=== PATIENT | male | born 1955 | race Caucasian/White ===

== ENCOUNTER 2016-11-19 03:55 | Emergency (ER) | payer OTHER ==
[~2016-11-19] VITALS: Ht 165.1 cm; Wt 127.0 kg
[~2016-11-19 03:55] MED LIST: ALBUTEROL0.09 MG/A1 INH; BREO ELLIPTA 11 EACH; FLOMAX(MONOGRA0.4 MG PO; GUAFENESIN400 MG PO; HYDROCHLOROTHIA25 M1 PO; INCRUSE ELLI62.5 MCG; LISINOPRIL10 M1 PO; MEDROL DOSEPAK1 PAC PO; MIRTAZAPINE45 M1 PO; MOXIFLOXACIN H400 M1 PO; PAROXETINE HCL20 M1 PO; PERCOCET 325 MG1 TA2 PO; PREDNISOLO15 MG/5 M4 PO; SIMVASTATIN40 M1 PO; ULORIC40 M1 PO; ULTRAM(MONOGRAP50 MG PO
[2016-11-19 04:10] VITALS: BP 155/87
--- NOTE | 2016-11-19 04:35 | ED UPPER/LOWER EXTREMITY COMPL ---
History of Present Illness General Chief Complaint: Shoulder Injury Stated Complaint: LT SHOULDER PAIN X'S 2 WKS Source: patient, old records Exam Limitations: no limitations Vital Signs & Intake/Output Vital Signs & Intake/Output Vital Signs Date Time Temp Pulse Resp B/P Pulse O2 O2 Flow FiO2 Ox Delivery Rate 11/19 0410 96.8 106 20 155/87 96 Room Air Allergies Coded Allergies: No Known Allergies (06/04/16) Reconcile Medications Albuterol Sulfate (Albuterol Sulfate Hfa) 0.09 MG/Actuation ADRIANNE 2 PUFF INH Q4- 6 PRN PRN SHORTNESS OF BREATH 90 MCG PER PUFF Febuxostat (Uloric) 40 MG TABLET 1 TAB PO DAILY GOUT (Reported) Fluticasone/Vilanterol (Breo Ellipta 100-25 Mcg INH) 1 EACH BLST.W.DEV COPD ( Reported) Guaifenesin (Guafenesin) 400 MG TAB 1 TAB PO Q4-6 PRN COUGH Hydrochlorothiazide 25 MG TABLET 1 TAB PO DAILY HTN (Reported) Lisinopril 10 MG TABLET 1 TAB PO DAILY HTN (Reported) Methylprednisolone. (Medrol) 1 PAC PAC 1 PAC PO AD INFLAMMATION Mirtazapine 45 MG TABLET 1 TAB PO QPM UNKNOWN (Reported) MOXIFLOXACIN HCL (Moxifloxacin HCl) 400 MG TAB 1 TAB PO DAILY PNA OXYCODONE HCL/ACETAMINOPHEN (Percocet 5-325 MG Tablet) 325 MG/5 MG TAB 1-2 TAB PO Q4-6 PRN PRN PAIN Paroxetine HCl 20 MG TABLET 1 TAB PO DAILY DEPRESSION (Reported) Prednisolone 15 MG/5 ML SOLUTION 15 ML PO QDAY pharyngitis Simvastatin (Simvastatin*) 40 MG TABLET 1 TAB PO QPM HIGH CHOLESTEROL ( Reported) Tamsulosin Hydrochloride (Flomax) 0.4 MG CAP 1 TAB PO DAILY URINANRY RETENTION Tramadol HCl (Ultram) 50 MG TAB 1-2 TAB PO Q6 PRN severe pain Umeclidinium [place] (Incruse Ellipta) 62.5 MCG BLST.W.DEV COPD (Reported) Triage Note: PT TO ED C/O LEFT SHOULDER PAIN FOR 2 WEEKS. STATES HE USED HIS [employer] 2 WEEKS AGO AND SHOULDER HAS BEEN GETTING WORSE. SAW PCP (LONG NELSON) AND HAS BEEN TAKING FLEXERIL FOR 2 DAYS WITH NO IMPROVEMENT Triage Nurses Notes Reviewed? yes HPI: Patient presents for evaluation of a left upper back pain that began about 2 weeks ago. Patient first noticed the pain the day after using a snowblower. The pain has gotten worse since its onset. pain is a constant sharp pain that does not change with movement. he tried flexeril and icy hot without relief. pt also c/o of rashes of the trunk over past 2 days. no fever or cold symptoms. Past History Travel History Traveled to [place] past 21 day No Medical History Any Pertinent Medical History? see below for history Neurological: NONE EENT: NONE Cardiovascular: hypertension, hyperlipidemia, AORTIC DISSECTION Respiratory: COPD, CHRONIC BRONCHITIS Gastrointestinal: NONE Hepatic: NONE Renal: NONE Musculoskeletal: NONE Psychiatric: depression Endocrine: NONE Blood Disorders: NONE Cancer(s): NONE RN LABOR DELIVERY/Reproductive: NONE History of MRSA: No History of VRE: No History of CDIFF: No Tetanus Vaccine: 01/29/13 Surgical History Surgical History: hernia repair-umbilical Psychosocial History Who do you live with Significant Other Services at Home None What is your primary language Macedonian Tobacco Use: Quit >30 days ago ETOH Use: occasional use Illicit Drug Use: denies illicit drug use Family History Hx Contributory? No Review of Systems Review of Systems Constitutional: Reports: no symptoms. EENTM: Reports: no symptoms. Respiratory: Reports: no symptoms. Cardiovascular: Reports: no symptoms. Gastrointestinal/Abdominal: Reports: no symptoms. Genitourinary: Reports: no symptoms. Musculoskeletal: Reports: see HPI. Skin: Reports: see HPI. Neurological/Psychological: Reports: no symptoms. Hematologic/Endocrine: Reports: no symptoms. Immunological: Reports: no symptoms. All Other Systems: Reviewed and Negative Physical Exam Physical Exam General Appearance: see below Comments: Gen.: Well-nourished, well-developed, no acute respiratory distress. Head: Normocephalic, atraumatic. Eyes: Normal inspection bilaterally Ears: Normal inspection bilaterally Nose: Normal inspection, nasal cannula in place Throat/mouth : Moist mucosa Neck: Supple, full range of motion, no goiter Heart: Regular rate and rhythm Lungs: Quiet respirations Back: Normal range of motion Extremities: Slightly decreased left hand grasp secondary to pain, the left upper extremity is neurovascularly intact otherwise. Neurologic: Cranial nerves grossly intact, speech is clear Skin: warm and dry, erythematous/vesicular rash of the left upper back and chest. Psychiatric: Calm, cooperative, no apparent delusions or hallucinations Diagram Shoulders Front/Back 1) rash 2) rash 3) rash 4) rash Progress Differential Diagnosis: cellulitis, contusion, dislocation, fracture, sprain, tendon injury, shingles Plan of Care: see d/c instructions Departure Departure Disposition: HOME OR SELF CARE Condition: Stable Clinical Impression Primary Impression: Shingles Qualifiers: Herpes zoster complications: without complications Qualified Code: B02.9 - Zoster without complications Referrals: LONG TIM MD (PCP/Family) Additional Instructions: Famvir as prescribed. Voltaren as needed for pain. Add [place] if necessary for pain. Follow-up with your primary care doctor in 2 weeks if not improved. Return if any concerns or sudden worsening. Thank you for choosing the [facility] Emergency Department for your care. It was a pleasure to serve you today. Phuc Sweeney M.D. [facility] Departure Forms: Customer Survey General Discharge Information Prescriptions: Current Visit Scripts Diclofenac Sodium 1 TAB PO BID PRN PAIN #20 TAB Hydrocodone/Acetaminophen ([place] 5-325 Tablet) 1-2 TAB PO Q6P PRN PAIN #20 TAB Famciclovir 1 TAB PO TID #21 TAB
[2016-11-19] MEDS ORDERED: NORCO 5-325 TA1 EACH PO (04:47)
[2016-11-19] MEDS ORDERED: DICLOFENAC SODI75 M2 PO (04:47)
[2016-11-19] MEDS ORDERED: FAMCICLOVIR500 M1 PO (04:47)
== END 2016-11-19 05:04 ==
LOC: ERH 03:55
DX: B02.9 Zoster without complications (principal)

== ENCOUNTER 2017-12-17 03:55 | Observation (INO) | payer OTHER ==
[~2017-12-17] VITALS: Ht 165.1 cm; Wt 122.5 kg
[~2017-12-17 03:55] MED LIST changes: +ANASTROZOLE1 M1 PO; +CHLORDIAZEPOXID10 M2 PO; +DICLOFENAC SODI75 M2 PO; +DULOXETINE HCL30 MG PO; +FAMCICLOVIR500 M1 PO; +FOLIC ACID1 M1 PO; +HYDROXYZINE HCL50 M1 PO; +MIRTAZAPINE15 M2 PO; +NALTREXONE HCL50 M1 PO; +NORCO 5-325 TA1 EACH PO; +PAXIL20 M1 PO
--- NOTE | 2017-12-17 04:23 | ED GI/GU/ABDOMINAL COMPLAINT ---
History of Present Illness General Chief Complaint: Abdominal Pain/Flank Pain Stated Complaint: "MY STOMACH ACHE, SOMEONE IS KICKING IT" Source: patient Exam Limitations: no limitations Vital Signs & Intake/Output Vital Signs & Intake/Output Vital Signs Date Time Temp Pulse Resp B/P B/P Pulse O2 O2 Flow FiO2 Mean Ox Delivery Rate 12/17 0853 85 20 181/93 97 Room Air 12/17 0601 98 18 193/88 97 Room Air 12/17 0412 98.0 57 20 182/102 96 Room Air Allergies Coded Allergies: No Known Allergies (06/04/16) Reconcile Medications Anastrozole 1 MG TABLET 1 TAB PO DAILY PT UNSURE (Reported) Ezetimibe (Zetia) 10 MG TABLET 1 TAB PO DAILY HIGH CHOLESTROL (Reported) Febuxostat (Uloric) 40 MG TABLET 1 TAB PO DAILY GOUT (Reported) Fluticasone/Vilanterol (Breo Ellipta 100-25 Mcg INH) 1 EACH BLST.W.DEV COPD ( Reported) Folic Acid 1 MG TABLET 1 MG PO DAILY supplement Hydroxyzine HCl (hydrOXYzine HCl) 50 MG TABLET ALLERGIES (Reported) Lisinopril 10 MG TABLET 1 TAB PO DAILY HTN (Reported) Mirtazapine 15 MG TABLET 1 TAB PO QPM SLEEP HELP . Naltrexone HCl 50 MG TABLET 1 TAB PO DAILY alcohol withdrawal . Paroxetine HCl 20 MG TABLET 1 TAB PO DAILY MENTAL HEALTH (Reported) Risperidone (Risperdal) 0.5 MG TABLET 1 TAB PO DAILY MENTAL HEALTH (Reported) Umeclidinium [place] (Incruse Ellipta) 62.5 MCG BLST.W.DEV COPD (Reported) Triage Note: PT HERE FROM HOME WITH C/O ABD PAIN THAT BEGAN LAST NIGHT. PT REPORTS PASSING GAS. PT REPORTS HE HAD A BM YESTERDAY MORNING. PT STATES THE PAIN FEELS LIKE SOMEONE IS KICKING ME. HE ALSO STATES LIKE HE FEELS LIKE HE NEEDS TO GO BM BUT CANT. PT REPORTS TAKING GAS-X AND SOME STOOL SOFTNERS WITHOUT RELIEF. Triage Nurses Notes Reviewed? yes Onset: Abrupt Duration: hour(s):, continues in ED, waxing and waning Location: generalized abdomen Radiation: no radiation HPI: Patient presents for evaluation of abdominal pain. Patient states that he had been passing a lot of flatus during the day but then that stopped and he began having abdominal pain feeling like a bloating sensation and the urge to move his bowels. Patient denies any associated fever or cold symptoms but did have some dry heaving. He denies any diarrhea. He has had an abdominal hernia surgery and also an aortic dissection surgery. (Phuc Sweeney MD) Past History Travel History Traveled to [place] past 21 day No Medical History Any Pertinent Medical History? see below for history Neurological: NONE EENT: NONE Cardiovascular: hypertension, hyperlipidemia, AORTIC DISSECTION Respiratory: COPD, CHRONIC BRONCHITIS Gastrointestinal: NONE Hepatic: NONE Renal: NONE Musculoskeletal: NONE Psychiatric: anxiety, depression, ETOH Endocrine: NONE Blood Disorders: NONE Cancer(s): NONE JAIL GUARD/Reproductive: NONE History of MRSA: No History of VRE: No History of CDIFF: No Tetanus Vaccine: 01/29/13 Surgical History Surgical History: hernia repair-umbilical, AORTIC DISSECTION Psychosocial History Who do you live with Significant Other Services at Home None What is your primary language Tuvaluan Tobacco Use: Quit <30 days ago ETOH Use: occasional use Illicit Drug Use: denies illicit drug use Family History Family History, If Any: No Known Family History. Hx Contributory? No (Zahra BEEBE,Phuc Curiel) Review of Systems Review of Systems Constitutional: Reports: no symptoms. EENTM: Reports: no symptoms. Respiratory: Reports: no symptoms. Cardiovascular: Reports: no symptoms. GI: Reports: see HPI. Genitourinary: Reports: no symptoms. Musculoskeletal: Reports: no symptoms. Skin: Reports: no symptoms. Neurological/Psychological: Reports: no symptoms. Hematologic/Endocrine: Reports: no symptoms. Immunologic/Allergic: Reports: no symptoms. All Other Systems: Reviewed and Negative (Phuc Sweeney MD) Physical Exam Physical Exam Gastrointestinal: SEE BELOW Comments: Gen.: Well-nourished, well-developed, no acute respiratory distress. Moderately uncomfortable secondary to abdominal pain. Head: Normocephalic, atraumatic. Eyes: Normal inspection bilaterally Ears: Normal inspection bilaterally Nose: Normal inspection Throat/mouth : Moist mucosa Neck: Supple, full range of motion, no goiter Heart: Regular rate and rhythm, no murmurs rubs or gallops Lungs: Clear to auscultation bilaterally with normal air entry Chest: Nontender Back: Normal range of motion Abdomen: Soft, diffuse tenderness with voluntary guarding but no rebound, nondistended, decreased bowel sounds Extremities: Normal range of motion grossly, equal radial pulses, no cyanosis clubbing or edema Neurologic: Cranial nerves grossly intact, speech is clear Skin: warm and dry Psychiatric: Calm, cooperative, no apparent delusions or hallucinations (Zahra BEEBE,Phuc Curiel) Core Measures ACS in differential dx? No Sepsis Present: No Sepsis Focused Exam Completed? No (Claudia BEEBE,Ana Crowder) Progress Differential Diagnosis: sbo, AORTIC DISSECTION/ANEURYSM, DIVERTICULITIS, APPENDICITIS, PANCREATITIS, BILIARY COLIC Plan of Care: Orders Procedure Date/time Status Nothing by Mouth 12/17 B Active TROPONIN LEVEL 12/17 0843 Active Add-on Test (ER Only) 12/17 0842 Active EKG 12/17 0842 Active Add-on Test (ER Only) 12/17 0628 Active TROPONIN LEVEL 12/17 0438 Complete LACTIC ACID 12/17 043 Complete URINALYSIS 12/17 043 Complete LIPASE 12/17 043 Complete COMPREHENSIVE METABOLIC PANEL 12/17 430 Complete CBC WITHOUT DIFFERENTIAL 12/17 430 Complete Current Medications Sig/Rei Start time Last Medication Dose Stop Time Status Admin Sodium Chloride 1,000 ML ONCE ONE 12/17 0445 AC 12/17 (Normal Saline 0.9%) 12/17 1124 0440 Laboratory Tests 12/17/17 0845: Troponin I Pending 12/17/17 0504: Urinalysis LIGHT H, Urine Color YEL, Urine Clarity HAZY H, Urine pH 5.5, Ur Specific Sanders >= 1.030, Urine Protein 100 H, Urine Ketones NEG, Urine Nitrite NEG, Urine Bilirubin NEG, Urine Urobilinogen 0.2, Ur Leukocyte Esterase NEG, Ur Microscopic SEDIMENT EXAMINED, Urine RBC 5-10 H, Urine WBC 3-5 H, Ur Epithelial Cells RARE, Urine Bacteria RARE H, Urine Mucus FEW, Urine Hemoglobin TRACE-INTACT H, Urine Glucose NEG 12/17/17 0438: Anion Gap 16, Estimated GFR 47 L, BUN/Creatinine Ratio 12.0, Glucose 177 H, Lactic Acid 2.4 H, Calcium 9.8, Total Bilirubin 0.5, AST 19, ALT 35, Alkaline Phosphatase 62, Troponin I < 0.01, Total Protein 7.1, Albumin 4.5, Globulin 2.6, Albumin/Globulin Ratio 1.7, Lipase 99, CBC w Diff MAN DIFF ORDERED, RBC 5.37, MCV 88.9, MCH 29.2, MCHC 32.9 L, RDW 13.9, MPV 8.3, Gran % 89.9 H, Lymphocytes % 6.6 L, Monocytes % 3.2, Eosinophils % 0.1, Basophils % 0.2, Absolute Granulocytes 14.4 H, Segmented Neutrophils 79 H, Band Neutrophils 9 H, Absolute Lymphocytes 1.1 L, Lymphocytes 5 L, Monocytes 5, Absolute Monocytes 0.5, Eosinophils 1, Absolute Eosinophils 0, Basophils 1, Absolute Basophils 0, Platelet Estimate ADEQUATE, Normocytic RBCs VERIFIED, Normochromic RBCs VERIFIED Diagnostic Imaging: Viewed by Me: CT Scan. Discussed w/RAD: CT Scan. Radiology Impression: PATIENT: NOHEMI JOLLY PRESENT AGE: 62 PATIENT ACCOUNT NO: [id number] : 53 LOCATION: [facility] ORDERING PHYSICIAN: Phuc Sweeney MD SERVICE DATE: 12/17/17 EXAM TYPE : CAT - CT ABD & PELVIS W/O IV CONTRAS EXAMINATION: CT ABDOMEN AND PELVIS WITHOUT CONTRAST CLINICAL INFORMATION: No flatus. Concern for small bowel obstruction. History of aortic dissection. COMPARISON: CT scan abdomen pelvis January 17, 2011 TECHNIQUE: Multidetector volumetric imaging was performed from the superior aspect of the liver through the pubic symphysis. Sagittal and coronal reformatted images were obtained on the technologist's workstation. DLP: 1302.27 mGy-cm FINDINGS: LUNG BASES: The visualized lung bases are unremarkable. There is coronary artery calcifications. LIVER, GALLBLADDER, AND BILIARY TREE: There is diffuse low attenuation of liver parenchyma due to fatty change. There is no focal liver lesion or intrahepatic bile duct dilatation. There is a 8 mm calcified gallstone at the neck of the gallbladder. There is no edema around the gallbladder. There is no bile duct dilatation. PANCREAS: Unremarkable. SPLEEN: Unremarkable. ADRENAL GLANDS: Unremarkable. KIDNEYS AND URETERS: There are bilateral renal cysts. There are 2 pedunculated cyst of the left kidney in the mid and lower pole measuring 2.8 cm each. There are several pedunculated cysts of the right kidney the largest measuring about 1.3 cm. There are linear vascular calcifications of the gustavo of both kidneys. No renal or ureteral calculus. BLADDER: Unremarkable. GASTROINTESTINAL TRACT: There are numerous diverticulosis of the left colon sigmoid with scattered diverticula right colon. No bowel wall thickening or edema. No bowel obstruction. Scattered stool in the colon. The appendix is normal. The small bowel loops are unremarkable. ABDOMINAL WALL: Small bilateral fat-containing inguinal hernia. Small fat-containing umbilical hernia. LYMPH NODES: Normal. VASCULAR: Scattered vascular calcifications of the wall of aorta and iliac arteries without aneurysm. PELVIC VISCERA: Unremarkable. OSSEOUS STRUCTURES: Unremarkable. IMPRESSION: 1. No acute abnormality CT scan abdomen pelvis. 2. Diffuse fatty change of liver. 3. Cholelithiasis without acute abnormality of the gallbladder. No bile duct dilatation. 4. Diverticulosis of the colon. No acute change of the bowel. 5. Multiple bilateral renal cysts. DICTATED BY: Bassam Uribe MD DATE/TIME DICTATED: 12/17/17603 SAMPLE CLERK:JESUS DATE/TIME TRANSCRIBED:12/17/17603 CONFIDENTIAL, DO NOT COPY WITHOUT APPROPRIATE AUTHORIZATION. <Electronically signed in Other Vendor System> SIGNED BY: Bassam Uribe MD 12/17/17 0614 Initial ED EKG: none Comments: 12/17/2017 6:44:47 AM I have updated Nohemi on his test results. He states that he tried to go to the bathroom here in the emergency department but just passed gas. He states he has a bowel movement every day but he did not have one this morning and is concerned about constipation. Rectal examination reveals no stool in the rectal vault and the residue is heme negative. 12/17/2017 7:37:24 AM patient signed out to Dr. 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 (Zahra BEEBE,Phuc Curiel) Initial ED EKG: NSR, nonspecific ST T wave chg Prior EKG: unchanged (Ana Taylor MD) Departure Departure Condition: Stable Referrals: Karthikeyan Evangelista MD (PCP/Family) Departure Forms: Customer Survey General Discharge Information (Phuc Sweeney MD) Departure Disposition: STILL A PATIENT Clinical Impression Primary Impression: Upper abdominal pain, unspecified Observation Note Spoke With: Marlen BEEBE,Logan N. Physician Advisor Notified: ANA TAYLOR MD Place Patient In: Non-ED OBS Care Area Rationale for Observation: My rational for observation is as follows [patient to be placed in general surgical problems for abdominal pain. He will need serial exams, IV fluids, IV pain control, nothing by mouth]. (Taylor MD,Costa.) pain control, nothing by mouth]. (Claudia BEEBE,Ana Crowder)
[2017-12-17] MEDS ORDERED: HYDROXYZINE HCL50 M2 (04:42)
[2017-12-17] MEDS ORDERED: RISPERDAL0.5 M1 PO (04:43)
[2017-12-17] MEDS ORDERED: ZETIA10 M1 PO (04:43)
[2017-12-17] MEDS ORDERED: PAROXETINE HCL20 M1 PO (04:43)
[2017-12-17 05:20] LABS: ABSOLUTE BASOPHIL COUNT 0 /CUMM (0.0-0.2); ABSOLUTE EOSINOPHIL COUNT 0 /CUMM (0.0-0.7); ABSOLUTE GRANULOCYTE CT 14.4 /CUMM (1.4-6.5); ABSOLUTE LYMPH COUNT 1.1 /CUMM (1.2-3.4); ABSOLUTE MONOCYTE COUNT 0.5 /CUMM (0.10-0.60); BASOPHIL % 0.2 % (0.0-2.0); EOSINOPHIL % 0.1 % (0-5); GRANULOCYTE % 89.9 % (42.2-75.2); HEMATOCRIT 47.7 % (42-52); MEAN CORPUSCULAR HGB 29.2 PG (27.0-31.0); MEAN CORPUSCULAR HGB CONC 32.9 G/DL (33.0-37.0); MEAN CORPUSCULAR VOLUME 88.9 FL (80.0-94.0); MEAN PLATELET VOLUME 8.3 FL (7.4-10.4); PLATELET COUNT 285 /CUMM (130-400); RBC DISTRIBUTION WIDTH 13.9 % (11.5-14.5); RED BLOOD CELL CT 5.37 /CUMM (4.70-6.10)
--- NOTE | 2017-12-17 06:14 | CT SCAN REPORT ---
EXAMINATION: CT ABDOMEN AND PELVIS WITHOUT CONTRAST CLINICAL INFORMATION: No flatus. Concern for small bowel obstruction. History of aortic dissection. COMPARISON: CT scan abdomen pelvis January 17, 2011 TECHNIQUE: Multidetector volumetric imaging was performed from the superior aspect of the liver through the pubic symphysis. Sagittal and coronal reformatted images were obtained on the technologist's workstation. DLP: 1302.27 mGy-cm FINDINGS: LUNG BASES: The visualized lung bases are unremarkable. There is coronary artery calcifications. LIVER, GALLBLADDER, AND BILIARY TREE: There is diffuse low attenuation of liver parenchyma due to fatty change. There is no focal liver lesion or intrahepatic bile duct dilatation. There is a 8 mm calcified gallstone at the neck of the gallbladder. There is no edema around the gallbladder. There is no bile duct dilatation. PANCREAS: Unremarkable. SPLEEN: Unremarkable. ADRENAL GLANDS: Unremarkable. KIDNEYS AND URETERS: There are bilateral renal cysts. There are 2 pedunculated cyst of the left kidney in the mid and lower pole measuring 2.8 cm each. There are several pedunculated cysts of the right kidney the largest measuring about 1.3 cm. There are linear vascular calcifications of the gustavo of both kidneys. No renal or ureteral calculus. BLADDER: Unremarkable. GASTROINTESTINAL TRACT: There are numerous diverticulosis of the left colon sigmoid with scattered diverticula right colon. No bowel wall thickening or edema. No bowel obstruction. Scattered stool in the colon. The appendix is normal. The small bowel loops are unremarkable. ABDOMINAL WALL: Small bilateral fat-containing inguinal hernia. Small fat-containing umbilical hernia. LYMPH NODES: Normal. VASCULAR: Scattered vascular calcifications of the wall of aorta and iliac arteries without aneurysm. PELVIC VISCERA: Unremarkable. OSSEOUS STRUCTURES: Unremarkable. IMPRESSION: 1. No acute abnormality CT scan abdomen pelvis. 2. Diffuse fatty change of liver. 3. Cholelithiasis without acute abnormality of the gallbladder. No bile duct dilatation. 4. Diverticulosis of the colon. No acute change of the bowel. 5. Multiple bilateral renal cysts.
--- NOTE | 2017-12-17 11:52 | ULTRASOUND REPORT ---
EXAMINATION: US ABDOMEN LIMITED CLINICAL INFORMATION: Right upper quadrant pain. Evaluation for cholecystitis requested.. COMPARISON: Same day CT abdomen pelvis TECHNIQUE: Real-time imaging of the right upper quadrant abdominal viscera. Examination limited secondary to patient body habitus and overlying bowel gas. FINDINGS: PANCREAS: Visualized portions of pancreas are grossly unremarkable. LIVER: The liver is normal in size but demonstrates diffusely decreased attenuation. Regions of decreased attenuation around the gallbladder. No intrahepatic biliary ductal dilatation. GALLBLADDER: Normal. The gallbladder is physiologically distended without evidence of stones, sludge, polyps, wall thickening or pericholecystic fluid. COMMON BILE DUCT: Not clearly visualized. RIGHT KIDNEY: No renal calculi or hydronephrosis. The kidney measures 10.9 cm in maximum dimension. FREE FLUID: None. IMPRESSION: 1. Unremarkable sonographic imaging of the gallbladder although evaluation is somewhat limited secondary to patient body habitus. Definitive gallstones are not visualized. No gallbladder wall thickening or pericholecystic fluid. 2. Diffusely increased liver echogenicity most suggestive of hepatic steatosis with regions of focal fatty sparing.
[2017-12-17 13:20] VITALS: BP 178/98
[2017-12-17 14:43] VITALS: BP 140/90
--- NOTE | 2017-12-17 17:28 | History & Physical Pre-Op ---
General Information and HPI History of Present Illness: CC: abdominal pain HPI: 62-year-old yo non-diabetic smoker with a history of abdominal aortic surgery (from trauma), alcoholism, he was admitted here last June for hyponatremia related in part to alcohol intake. He comes to the ER with abdominal pain which started yesterday after he had passed a lot of flatus over the course of several hours. He had a roast B sandwich for lunch but just fruit and salad for dinner he denies any significant vomiting he indicates that his discomfort is mostly in the middle perhaps slightly more in the upper half, does not radiate, now feels a little better, is not hungry, pain is not worse on movement, hasn't moved his bowels today but he moves them regularly no bleeding per rectum no unusual straining or lifting recent flulike symptoms or fevers, he 's had similar pains before but not this severe and he can't recall any relation to food . When The Pain Started He Did Take A Few Laxatives Including Pepto- Bismol Otherwise no changes bowel habits, weight or appetite. I've reviewed the [facility]. No history of GERD, PUD, bleeding problems, heart disease or issues with anesthesia. Family history positive for depression, mother Allergies/Medications Allergies: Coded Allergies: No Known Allergies (06/04/16) Home Med list Anastrozole 1 MG TABLET 1 TAB PO DAILY PT UNSURE (Reported) Ezetimibe (Zetia) 10 MG TABLET 1 TAB PO DAILY HIGH CHOLESTROL (Reported) Febuxostat (Uloric) 40 MG TABLET 1 TAB PO DAILY GOUT (Reported) Fluticasone/Vilanterol (Breo Ellipta 100-25 Mcg INH) 1 EACH BLST.W.DEV COPD ( Reported) Folic Acid 1 MG TABLET 1 MG PO DAILY supplement Hydroxyzine HCl (hydrOXYzine HCl) 50 MG TABLET ALLERGIES (Reported) Lisinopril 10 MG TABLET 1 TAB PO DAILY HTN (Reported) Mirtazapine 15 MG TABLET 1 TAB PO QPM SLEEP HELP . Naltrexone HCl 50 MG TABLET 1 TAB PO DAILY alcohol withdrawal . Paroxetine HCl 20 MG TABLET 1 TAB PO DAILY MENTAL HEALTH (Reported) Risperidone (Risperdal) 0.5 MG TABLET 1 TAB PO DAILY MENTAL HEALTH (Reported) Umeclidinium [place] (Incruse Ellipta) 62.5 MCG BLST.W.DEV COPD (Reported) Past History Medical History Neurological: NONE EENT: NONE Cardiovascular: hypertension, hyperlipidemia, AORTIC DISSECTION Respiratory: COPD, CHRONIC BRONCHITIS Gastrointestinal: NONE Hepatic: NONE Renal: NONE Musculoskeletal: NONE Psychiatric: anxiety, depression, ETOH Endocrine: NONE Blood Disorders: NONE Cancer(s): NONE [employer]/Reproductive: NONE History of MRSA: No History of VRE: No History of CDIFF: No Tetanus Vaccine: 01/29/13 Surgical History Pertinent Surgical History: hernia repair-umbilical, AORTIC DISSECTION Past Family/Social History Family History Relations & Conditions if any No Known Family History. Psychosocial History Services at Home None ETOH Use: occasional use Illicit Drug Use: denies illicit drug use Review of Systems Review of Systems: Constitutional: No fever, sweats or weight loss ENMT: No sore throat Cardiovascular: No chest pain, palpitations or leg swelling Respiratory: No shortness of breath, cough, or sputum or dyspnea on exertion GI: No GERD or bleeding per rectum : No dysuria or hematuria Musculoskeletal: No new muscle weakness, bone or joint pain Skin / Breast: No jaundice, rashes or itching Psychiatric: No history of drug or alcohol abuse no depression or anxiety Hematologic / lymphatic system: No problems with excessive bleeding, bruising, or blood clots Exam & Diagnostic Data Last 24 Hrs of Vital Signs/I&O I reviewed Vital Signs Date Time Temp Pulse Resp B/P B/P Pulse O2 O2 Flow FiO2 Mean Ox Delivery Rate 12/17 1443 97.6 77 20 140/90 95 12/17 1425 80 178/98 12/17 1320 98.6 80 20 178/98 97 Room Air 12/17 1257 97.8 76 20 180/77 97 Room Air 12/17 0853 85 20 181/93 97 Room Air 12/17 0601 98 18 193/88 97 Room Air 12/17 0412 98.0 57 20 182/102 96 Room Air I reviewed Intake & Output 12/17 1600 12/17 0800 12/17 0000 Intake Total 1000 1000 Output Total 400 Balance 600 1000 Intake, IV 1000 1000 Output, Urine 400 Patient 270 lb 270 lb Weight Weight Reported by Patient Measurement Method Physical Exam: Constitutional: pleasant, no acute distress, conversant Eyes: sclera anicteric ENMT: ears and nose atraumatic, moist mucous membranes, good dentition, no lip lesions Neck: Supple, trachea is midline, no cervical or supraclavicular adenopathy and no palpable thyromegaly Cardiovascular: S1, S2, no murmurs, no peripheral edema Respiratory: clear to auscultation with normal respiratory effort and no intercostal retractions GI: abdomen soft, no consistent focal tenderness, but general discomfort upper greater than lower, nondistended, no palpable hepatosplenomegaly Extremities / lymphatics: symmetrically warm, free range of motion no peripheral edema, no cervical, supraclavicular, axillary, or inguinal adenopathy Musculoskeletal: Did not evaluate gait and station, no digital cyanosis, good muscle strength and tone no atrophy, motor grossly 5 out of 5 throughout Skin: no jaundice, no rashes warm, nondiaphoretic, no areas of erythema or induration Psychiatric: mood and affect are appropriate and alert and oriented to person place and time Last 24 Hrs of Labs/[place]: I reviewed Laboratory Tests 12/17/17 1233: Lactic Acid Cancelled 12/17/17 1105: Lactic Acid 1.4 12/17/17 0845: Troponin I < 0.01 12/17/17 0504: Urinalysis LIGHT H, Urine Color YEL, Urine Clarity HAZY H, Urine pH 5.5, Ur Specific [place] >= 1.030, Urine Protein 100 H, Urine Ketones NEG, Urine Nitrite NEG, Urine Bilirubin NEG, Urine Urobilinogen 0.2, Ur Leukocyte Esterase NEG, Ur Microscopic SEDIMENT EXAMINED, Urine RBC 5-10 H, Urine WBC 3-5 H, Ur Epithelial Cells RARE, Urine Bacteria RARE H, Urine Mucus FEW, Urine Hemoglobin TRACE-INTACT H, Urine Glucose NEG 12/17/17 0438: Anion Gap 16, Estimated GFR 47 L, BUN/Creatinine Ratio 12.0, Glucose 177 H, Lactic Acid 2.4 H, Calcium 9.8, Total Bilirubin 0.5, AST 19, ALT 35, Alkaline Phosphatase 62, Troponin I < 0.01, Total Protein 7.1, Albumin 4.5, Globulin 2.6, Albumin/Globulin Ratio 1.7, Lipase 99, CBC w Diff MAN DIFF ORDERED, RBC 5.37, MCV 88.9, MCH 29.2, MCHC 32.9 L, RDW 13.9, MPV 8.3, Gran % 89.9 H, Lymphocytes % 6.6 L, Monocytes % 3.2, Eosinophils % 0.1, Basophils % 0.2, Absolute Granulocytes 14.4 H, Segmented Neutrophils 79 H, Band Neutrophils 9 H, Absolute Lymphocytes 1.1 L, Lymphocytes 5 L, Monocytes 5, Absolute Monocytes 0.5, Eosinophils 1, Absolute Eosinophils 0, Basophils 1, Absolute Basophils 0, Platelet Estimate ADEQUATE, Normocytic RBCs VERIFIED, Normochromic RBCs VERIFIED Assessment/Plan Assessment/Plan: Studies I reviewed the CT scan on PACS myself from today compared to the one from 2011, except for the oral contrast and a slightly more fluid-filled gallbladder, they're virtually identical. There is no bowel obstruction obvious , you can see probably the Pepto-Bismol in the ascending colon, no bowel wall thickening, there is a lot of visceral fat, there is a calcification near the infundibulum that wasn't seen earlier. Impression is patient with a history of alcohol abuse who presents dehydrated with abdominal pain, he is not very forthcoming with the alcohol apparently he had decreased significantly since the previous, but overall appears rather comfortable no obvious peritoneal signs of the exam may be limited somewhat by analgesics, but the differential includes mesenteric ischemia and biliary colic, both of these even so seem very unlikely given the history and the exam thus far. I recommend IV hydration observation and repeating the labs proximal Lasix hours from the initial ones also getting a dedicated ultrasound of the gallbladder. No acute surgery is indicated. As Ranked By This Provider Problem List: 1. Upper abdominal pain, unspecified 2. Dehydration 3. History of alcohol use
[2017-12-17 19:40] LABS: ABSOLUTE BASOPHIL COUNT 0.1 /CUMM (0.0-0.2); ABSOLUTE EOSINOPHIL COUNT 0.1 /CUMM (0.0-0.7); ABSOLUTE GRANULOCYTE CT 8.2 /CUMM (1.4-6.5); ABSOLUTE LYMPH COUNT 2.7 /CUMM (1.2-3.4); ABSOLUTE MONOCYTE COUNT 0.9 /CUMM (0.10-0.60); BASOPHIL % 0.5 % (0.0-2.0); EOSINOPHIL % 1.2 % (0-5); GRANULOCYTE % 68.2 % (42.2-75.2); HEMATOCRIT 46.9 % (42-52); MEAN CORPUSCULAR HGB 29.4 PG (27.0-31.0); MEAN CORPUSCULAR HGB CONC 33.1 G/DL (33.0-37.0); MEAN CORPUSCULAR VOLUME 88.7 FL (80.0-94.0); MEAN PLATELET VOLUME 7.5 FL (7.4-10.4); PLATELET COUNT 264 /CUMM (130-400); RBC DISTRIBUTION WIDTH 13.9 % (11.5-14.5); RED BLOOD CELL CT 5.29 /CUMM (4.70-6.10)
[2017-12-17 22:11] VITALS: BP 142/100
[2017-12-18 06:50] VITALS: BP 150/98
--- NOTE | 2017-12-18 07:52 | PN- General Surgery ---
Subjective Subjective: Reports pain free since last night. Tolerated dinner and breakfast this morning. No nausea or vomiting. Passing gas. Voiding spontanously. Last BM 2 days ago. Scoring 0 on ciwa. Objective Vital Signs and I&Os Vital Signs Date Time Temp Pulse Resp B/P B/P Pulse O2 O2 Flow FiO2 Mean Ox Delivery Rate 12/18 0650 98.2 61 24 150/98 95 Room Air 12/17 221 98.0 87 19 142/100 96 Room Air 12/17 1443 97.6 77 20 140/90 95 12/17 1425 80 178/98 12/17 1320 98.6 80 20 178/98 97 Room Air 12/17 1257 97.8 76 20 180/77 97 Room Air Intake & Output 12/18 1600 12/18 0800 12/18 0000 12/17 1600 12/17 0800 12/17 0000 Intake Total 615 1575 1000 1000 Output Total 900 400 Balance 615 163 675 2318 Intake, IV 632 547 0854 1000 Intake, Oral 240 700 Number 0 Bowel Movements Output, Urine 900 400 Patient 270 lb 270 lb Weight Weight Reported by Patient Measurement Method Physical Exam: Gen - resting comfortably in NAD Cardiac - S1S2 noted, RRR Lungs - CTAB Abd - soft, obese, protubrant, normoactive bs, dull to percussion, nontender thoughout, no rebound or guarding Current Medications: Current Medications Sig/Rei Start time Last Medication Dose Route Stop Time Status Admin Acetaminophen 1,000 MG Q6H 12/17 09 DC 12/18 N/A 1 UNIT IV 12/18 0344 0313 Albuterol Sulfate 2 PUF Q4P PRN 12/17 1330 AC INH Bisacodyl 10 MG ONCE ONE 12/18 0800 DC ND 12/18 0801 Budesonide/ 2 PUF BID 12/17 2200 AC 12/17 Formoterol Fumarate INH 2210 Dextrose/Sodium 1,000 ML .Q8H 12/17 0930 DC 12/18 Chloride IV 0656 Heparin Sodium 5,000 UNIT Q8 12/17 1400 AC 12/18 (Porcine) SC 0529 Ketorolac 30 MG Q6P PRN 12/17 0930 DC 12/17 Tromethamine IV 2205 Lisinopril 10 MG DAILY 12/17 1322 AC 12/17 PO 1425 Mirtazapine 15 MG QPM 12/18 2200 AC PO Mirtazapine 15 MG ONCE ONE 12/17 2345 DC PO 12/17 2346 Morphine Sulfate 0 .STK-MED ONE 12/17 1017 DC .ROUTE Morphine Sulfate 2 MG Q2P PRN 12/17 0930 DC 12/17 IV 1021 Ondansetron HCl 4 MG Q8P PRN 12/17 0930 AC IV Pantoprazole Sodium 0 .STK-MED ONE 12/17 1017 DC IV Pantoprazole Sodium 40 MG DAILY 12/17 1000 AC 12/17 IV 1019 Paroxetine HCl 20 MG DAILY 12/17 1322 AC 12/17 PO 1425 Polyethylene Glycol 17 GM ONCE ONE 12/18 0800 DC PO 12/18 0801 Risperidone 0.5 MG DAILY 12/17 1324 AC 12/17 PO 1425 Sodium Chloride 1,000 ML ONCE ONE 12/17 0445 DC 12/17 IV 12/17 1124 0440 Results Last 48 Hours of Labs: Laboratory Tests 12/17 12/17 12/17 1908 1233 1105 Chemistry Sodium (137 - 145 mmol/L) 139 Potassium (3.5 - 5.1 mmol/L) 4.0 Chloride (98 - 107 mmol/L) 103 Carbon Dioxide (22 - 30 mmol/L) 25 Anion Gap (5 - 16) 11 BUN (9 - 20 mg/dL) 15 Creatinine (0.7 - 1.2 mg/dL) 1.6 H Estimated GFR (>60 ml/min) 44 L BUN/Creatinine Ratio (7 - 25 %) 9.4 Lactic Acid (0.7 - 2.1 mmol/L) 1.6 Cancelled 1.4 Total Bilirubin (0.2 - 1.3 mg/dL) 0.8 Direct Bilirubin (< 0.4 mg/dL) 0.4 AST (17 - 59 U/L) 16 L ALT (21 - 72 U/L) 24 Alkaline Phosphatase (< 127 U/L) 47 Total Protein (6.3 - 8.2 g/dL) 6.4 Albumin (3.5 - 5.0 g/dL) 3.9 Amylase (30 - 110 U/L) 85 Lipase (23 - 300 U/L) 137 Hematology CBC w Diff NO MAN DIFF REQ WBC (4.8 - 10.8 /CUMM) 12.0 H RBC (4.70 - 6.10 /CUMM) 5.29 Hgb (14.0 - 18.0 G/DL) 15.5 Hct (42 - 52 %) 46.9 MCV (80.0 - 94.0 FL) 88.7 MCH (27.0 - 31.0 PG) 29.4 MCHC (33.0 - 37.0 G/DL) 33.1 RDW (11.5 - 14.5 %) 13.9 Plt Count (130 - 400 /CUMM) 264 MPV (7.4 - 10.4 FL) 7.5 Gran % (42.2 - 75.2 %) 68.2 Lymphocytes % (20.5 - 51.1 %) 22.5 Monocytes % (1.7 - 9.3 %) 7.6 Eosinophils % (0 - 5 %) 1.2 Basophils % (0.0 - 2.0 %) 0.5 Absolute Granulocytes (1.4 - 6.5 /CUMM) 8.2 H Absolute Lymphocytes (1.2 - 3.4 /CUMM) 2.7 Absolute Monocytes (0.10 - 0.60 /CUMM) 0.9 H Absolute Eosinophils (0.0 - 0.7 /CUMM) 0.1 Absolute Basophils (0.0 - 0.2 /CUMM) 0.1 12/17 12/17 0818 0504 Chemistry Troponin I (<0.11 ng/ml) < 0.01 Urines Urinalysis LIGHT H Urine Color (YEL,AMB,STR) YEL Urine Clarity (CLEAR) HAZY H Urine pH (5.0 - 8.0) 5.5 Ur Specific [place] (1.001 - 1.035) >= 1.030 Urine Protein (NEG,<30 MG/DL) 100 H Urine Ketones (NEG) NEG Urine Nitrite (NEG) NEG Urine Bilirubin (NEG) NEG Urine Urobilinogen (0.1 - 1.0 EU/dl) 0.2 Ur Leukocyte Esterase (NEG) NEG Ur Microscopic SEDIMENT EXAMINED Urine RBC (0 - 5 /HPF) 5-10 H Urine WBC (0 - 2 /HPF) 3-5 H Ur Epithelial Cells (NONE,FEW) RARE Urine Bacteria (NEG/NONE) RARE H Urine Mucus (FEW,NONE) FEW Urine Hemoglobin (NEG) TRACE-INTACT H Urine Glucose (N MG/DL) NEG 12/17 0438 Chemistry Sodium (137 - 145 mmol/L) 139 Potassium (3.5 - 5.1 mmol/L) 4.6 Chloride (98 - 107 mmol/L) 102 Carbon Dioxide (22 - 30 mmol/L) 21 L Anion Gap (5 - 16) 16 BUN (9 - 20 mg/dL) 18 Creatinine (0.7 - 1.2 mg/dL) 1.5 H Estimated GFR (>60 ml/min) 47 L BUN/Creatinine Ratio (7 - 25 %) 12.0 Glucose (65 - 99 mg/dL) 177 H Lactic Acid (0.7 - 2.1 mmol/L) 2.4 H Calcium (8.4 - 10.2 mg/dL) 9.8 Total Bilirubin (0.2 - 1.3 mg/dL) 0.5 AST (17 - 59 U/L) 19 ALT (21 - 72 U/L) 35 Alkaline Phosphatase (< 127 U/L) 62 Troponin I (<0.11 ng/ml) < 0.01 Total Protein (6.3 - 8.2 g/dL) 7.1 Albumin (3.5 - 5.0 g/dL) 4.5 Globulin (1.9 - 4.2 gm/dL) 2.6 Albumin/Globulin Ratio (1.1 - 2.2 %) 1.7 Lipase (23 - 300 U/L) 99 Hematology CBC w Diff MAN DIFF ORDERED WBC (4.8 - 10.8 /CUMM) 16.0 H RBC (4.70 - 6.10 /CUMM) 5.37 Hgb (14.0 - 18.0 G/DL) 15.7 Hct (42 - 52 %) 47.7 MCV (80.0 - 94.0 FL) 88.9 MCH (27.0 - 31.0 PG) 29.2 MCHC (33.0 - 37.0 G/DL) 32.9 L RDW (11.5 - 14.5 %) 13.9 Plt Count (130 - 400 /CUMM) 285 MPV (7.4 - 10.4 FL) 8.3 Gran % (42.2 - 75.2 %) 89.9 H Lymphocytes % (20.5 - 51.1 %) 6.6 L Monocytes % (1.7 - 9.3 %) 3.2 Eosinophils % (0 - 5 %) 0.1 Basophils % (0.0 - 2.0 %) 0.2 Absolute Granulocytes (1.4 - 6.5 /CUMM) 14.4 H Segmented Neutrophils (42.2 - 75.2 %) 79 H Band Neutrophils (0.0 - 5.0 %) 9 H Absolute Lymphocytes (1.2 - 3.4 /CUMM) 1.1 L Lymphocytes (20.5 - 51.1 %) 5 L Monocytes (1.7 - 9.3 %) 5 Absolute Monocytes (0.10 - 0.60 /CUMM) 0.5 Eosinophils (0 - 5.0 %) 1 Absolute Eosinophils (0.0 - 0.7 /CUMM) 0 Basophils (0.0 - 2.0 %) 1 Absolute Basophils (0.0 - 0.2 /CUMM) 0 Platelet Estimate (ADEQUATE) ADEQUATE Normocytic RBCs VERIFIED Normochromic RBCs VERIFIED Recent Imaging Studies: SERVICE DATE: 12/17/17 EXAM TYPE: US - US-LIMITED ABDOMEN EXAMINATION: US ABDOMEN LIMITED CLINICAL INFORMATION: Right upper quadrant pain. Evaluation for cholecystitis requested.. COMPARISON: Same day CT abdomen pelvis TECHNIQUE: Real-time imaging of the right upper quadrant abdominal viscera. Examination limited secondary to patient body habitus and overlying bowel gas. FINDINGS: PANCREAS: Visualized portions of pancreas are grossly unremarkable. LIVER: The liver is normal in size but demonstrates diffusely decreased attenuation. Regions of decreased attenuation around the gallbladder. No intrahepatic biliary ductal dilatation. GALLBLADDER: Normal. The gallbladder is physiologically distended without evidence of stones, sludge, polyps, wall thickening or pericholecystic fluid. COMMON BILE DUCT: Not clearly visualized. RIGHT KIDNEY: No renal calculi or hydronephrosis. The kidney measures 10.9 cm in maximum dimension. FREE FLUID: None. IMPRESSION: 1. Unremarkable sonographic imaging of the gallbladder although evaluation is somewhat limited secondary to patient body habitus. Definitive gallstones are not visualized. No gallbladder wall thickening or pericholecystic fluid. 2. Diffusely increased liver echogenicity most suggestive of hepatic steatosis with regions of focal fatty sparing. Assessment/Plan Assessment/Plan 62 M presented with abdominal pain and dehydration, no concern for mesenteric ischemia or biliary colic at this time. Pain resolved and he is tolerating a cardiac diet. Cardiac diet D/c IVF D/c Pain meds Start Miralax Dulcolax supp once prn Cont home meds GI/DVT ppx on board Cont CIWA F/u labs Cont observation in anticipation of discharge later today pending labs Will d/w Dr. Gee Core Measures Venous Thromboembolism VTE Risk Factors Age>40 No Mechanical VTE Prophylaxis d/t N/A MechProphylax Ordered No VTE Pharm Prophylaxis d/t NA PharmProphylax ordered
--- NOTE | 2017-12-18 07:57 | Patient Discharge Instructions ---
Discharge Instructions General Discharge Information You were seen/treated for: Abdominal pain Dehydration You had these procedures: None Watch for these problems: Increased pain, fever, inability to pass gas, move your bowels. Special Instructions: Follow up as needed with Dr. Gee Diet Continue normal diet: Yes Activity Full Activity/No Limits: Yes Acute Coronary Syndrome Inclusion Criteria At DC or during hospital stay patient has or had the following: ACS DIAGNOSIS No Discharge Core Measures Meds if any: Prescribed or Continued at Discharge Meds if any: NOT Prescribed or Continued at Discharge Congestive Heart Failure Inclusion Criteria At DC or during hospital stay patient has or had the following: CHF DIAGNOSIS No Discharge Core Measures Meds if any: Prescribed or Continued at Discharge Meds if any: NOT Prescribed or Continued at Discharge Cerebrovascular accident Inclusion Criteria At DC or during hospital stay patient has or had the following: CVA/TIA Diagnosis No Discharge Core Measures Meds if any: Prescribed or Continued at Discharge Meds if any: NOT Prescribed or Continued at Discharge Venous thromboembolism Inclusion Criteria VTE Diagnosis No VTE Type NONE VTE Confirmed by (Test) NONE Discharge Core Measures - Per Current guidelines, there needs to be overlap - treatment for the first 5 days of Warfarin therapy. - If discharged on Warfarin prior to 5 days of - overlap therapy, the patient will need to be - assessed for post discharge needs including - *Post discharge parental anticoagulation - *Warfarin and/or parental anticoagulation education - *Follow up date to check INR post discharge At least 5 days overlap therapy as Inpatient No Meds if any: Prescribed or Continued at Discharge Note: Overlap Therapy is Warfarin and Anticoagulant Meds if any: NOT Prescribed or Continued at Discharge
[2017-12-18 08:00] VITALS: BP 150/88
--- NOTE | 2017-12-18 08:00 | Admission Core Measures ---
Acute Coronary Syndrome (CM) ACS Core Measures Acute Coronary Syndrome Diagnosis No Congestive Heart Failure (NEW) CHF Core Measures Congestive Heart Failure Diagnosis No Cerebrovascular Accident (NEW) CVA Core Measures CVA/TIA Diagnosis No Venous Thromboembolism VTE Core Lexi (View Protocol) VTE Risk Factors Age>40 No Mechanical VTE Prophylaxis d/t N/A MechProphylax Ordered No VTE Pharm Prophylaxis d/t NA PharmProphylax ordered Problem List As ranked by this Provider includes Assessment & Plan 1. Upper abdominal pain, unspecified 2. Dehydration 3. History of alcohol use HOME MEDS Home Med List Anastrozole 1 MG TABLET 1 TAB PO DAILY PT UNSURE (Reported) Ezetimibe (Zetia) 10 MG TABLET 1 TAB PO DAILY HIGH CHOLESTROL (Reported) Febuxostat (Uloric) 40 MG TABLET 1 TAB PO DAILY GOUT (Reported) Folic Acid 1 MG TABLET 1 MG PO DAILY supplement Lisinopril 10 MG TABLET 1 TAB PO DAILY HTN (Reported) Mirtazapine 15 MG TABLET 1 TAB PO QPM SLEEP HELP Naltrexone HCl 50 MG TABLET 1 TAB PO DAILY alcohol withdrawal Paroxetine HCl 20 MG TABLET 1 TAB PO DAILY MENTAL HEALTH (Reported) Risperidone (Risperdal) 0.5 MG TABLET 1 TAB PO DAILY MENTAL HEALTH (Reported)
[2017-12-18 10:00] VITALS: BP 150/88
[2017-12-18 12:00] VITALS: BP 146/86
[2017-12-18 12:08] LABS: ABSOLUTE BASOPHIL COUNT 0 /CUMM (0.0-0.2); ABSOLUTE EOSINOPHIL COUNT 0.1 /CUMM (0.0-0.7); ABSOLUTE GRANULOCYTE CT 6.6 /CUMM (1.4-6.5); ABSOLUTE LYMPH COUNT 1.9 /CUMM (1.2-3.4); ABSOLUTE MONOCYTE COUNT 0.6 /CUMM (0.10-0.60); BASOPHIL % 0.5 % (0.0-2.0); EOSINOPHIL % 1.4 % (0-5); GRANULOCYTE % 71.7 % (42.2-75.2); HEMATOCRIT 44.3 % (42-52); MEAN CORPUSCULAR HGB 29.5 PG (27.0-31.0); MEAN CORPUSCULAR VOLUME 89.3 FL (80.0-94.0); MEAN PLATELET VOLUME 7.5 FL (7.4-10.4); PLATELET COUNT 224 /CUMM (130-400); RED BLOOD CELL CT 4.97 /CUMM (4.70-6.10); WHITE BLOOD CELL COUNT 9.3 /CUMM (4.8-10.8)
--- NOTE | 2017-12-18 13:11 | PN- General Surgery ---
Subjective Subjective: followup of abdom pain denies pain or sweats, ambulating, + BM, cal diet feels "like nothing ever happened" Objective Vital Signs and I&Os I reviewed Vital Signs Date Time Temp Pulse Resp B/P B/P Pulse O2 O2 Flow FiO2 Mean Ox Delivery Rate 12/18 1038 Room Air 12/18 0950 61 150/88 12/18 0650 98.2 61 24 150/98 95 Room Air 12/17 2211 98.0 87 19 142/100 96 Room Air 12/17 1443 97.6 77 20 140/90 95 12/17 1425 80 178/98 12/17 1320 98.6 80 20 178/98 97 Room Air I reviewed Intake & Output 12/18 1600 12/18 0800 12/18 0000 12/17 1600 12/17 0800 12/17 0000 Intake Total 615 1575 1000 1000 Output Total 900 400 Balance 615 261 624 2800 Intake, IV 780 524 3295 1000 Intake, Oral 240 700 Number 0 Bowel Movements Output, Urine 900 400 Patient 270 lb 270 lb Weight Weight Reported by Patient Measurement Method Physical Exam: Constitutional: no acute distress no pain Eyes: sclera anicteric ENMT: moist mucous membranes Cardiovascular: S1-S2 no murmurs no peripheral edema Respiratory: clear to auscultation with normal respiratory effort and no intercostal retractions GI: abdomen soft nontender nondistended Extremities / lymphatics: free range of motion no peripheral edema Skin: no jaundice no rashes warm, nondiaphoretic Psychiatric: mood and affect are appropriate and alert and oriented to person place and time Current Medications: I reviewed Current Medications Sig/Rei Start time Last Medication Dose Route Stop Time Status Admin Acetaminophen 1,000 MG Q6H 12/17 0930 DC 12/18 N/A 1 UNIT IV 12/18 0344 0313 Albuterol Sulfate 2 PUF Q4P PRN 12/17 1330 AC INH Bisacodyl 10 MG ONCE ONE 12/18 0800 DC ME 12/18 0801 Budesonide/ 2 PUF BID 12/17 2200 AC 12/18 Formoterol Fumarate INH 0950 Dextrose/Sodium 1,000 ML .Q8H 12/17 0930 DC 12/18 Chloride IV 0656 Heparin Sodium 5,000 UNIT Q8 12/17 1400 AC 12/18 (Porcine) SC 0529 Ketorolac 30 MG Q6P PRN 12/17 0930 DC 12/17 Tromethamine IV 2205 Lisinopril 10 MG DAILY 12/17 1322 AC 12/18 PO 0950 Mirtazapine 15 MG QPM 12/18 2200 AC PO Mirtazapine 15 MG ONCE ONE 12/17 2345 DC PO 12/17 2346 Morphine Sulfate 2 MG Q2P PRN 12/17 0930 DC 12/17 IV 1021 Ondansetron HCl 4 MG Q8P PRN 12/17 0930 AC IV Pantoprazole Sodium 40 MG DAILY 12/17 1000 AC 12/18 IV 0950 Paroxetine HCl 20 MG DAILY 12/17 1322 AC 12/18 PO 0949 Patient Medication 1 ED ONE ONE 12/18 1145 DC Teaching ED 12/18 1146 Polyethylene Glycol 17 GM ONCE ONE 12/18 0800 DC PO 12/18 0801 Risperidone 0.5 MG DAILY 12/17 1324 AC 12/18 PO 0949 Results Last 48 Hours of Labs: I reviewed Laboratory Tests 12/18 12/18 1136 1136 Chemistry Sodium (137 - 145 mmol/L) 139 Cancelled Potassium (3.5 - 5.1 mmol/L) 4.3 Cancelled Chloride (98 - 107 mmol/L) 101 Cancelled Carbon Dioxide (22 - 30 mmol/L) 25 Cancelled Anion Gap (5 - 16) 14 Cancelled BUN (9 - 20 mg/dL) 17 Cancelled Creatinine (0.7 - 1.2 mg/dL) 1.6 H Cancelled Estimated GFR (>60 ml/min) 44 L BUN/Creatinine Ratio (7 - 25 %) 10.6 Cancelled Hematology CBC w Diff NO MAN DIFF REQ WBC (4.8 - 10.8 /CUMM) 9.3 RBC (4.70 - 6.10 /CUMM) 4.97 Hgb (14.0 - 18.0 G/DL) 14.6 Hct (42 - 52 %) 44.3 MCV (80.0 - 94.0 FL) 89.3 MCH (27.0 - 31.0 PG) 29.5 MCHC (33.0 - 37.0 G/DL) 33.0 RDW (11.5 - 14.5 %) 14.0 Plt Count (130 - 400 /CUMM) 224 MPV (7.4 - 10.4 FL) 7.5 Gran % (42.2 - 75.2 %) 71.7 Lymphocytes % (20.5 - 51.1 %) 20.1 L Monocytes % (1.7 - 9.3 %) 6.3 Eosinophils % (0 - 5 %) 1.4 Basophils % (0.0 - 2.0 %) 0.5 Absolute Granulocytes (1.4 - 6.5 /CUMM) 6.6 H Absolute Lymphocytes (1.2 - 3.4 /CUMM) 1.9 Absolute Monocytes (0.10 - 0.60 /CUMM) 0.6 Absolute Eosinophils (0.0 - 0.7 /CUMM) 0.1 Absolute Basophils (0.0 - 0.2 /CUMM) 0 12/17 12/17 12/17 1908 1233 1105 Chemistry Sodium (137 - 145 mmol/L) 139 Potassium (3.5 - 5.1 mmol/L) 4.0 Chloride (98 - 107 mmol/L) 103 Carbon Dioxide (22 - 30 mmol/L) 25 Anion Gap (5 - 16) 11 BUN (9 - 20 mg/dL) 15 Creatinine (0.7 - 1.2 mg/dL) 1.6 H Estimated GFR (>60 ml/min) 44 L BUN/Creatinine Ratio (7 - 25 %) 9.4 Lactic Acid (0.7 - 2.1 mmol/L) 1.6 Cancelled 1.4 Total Bilirubin (0.2 - 1.3 mg/dL) 0.8 Direct Bilirubin (< 0.4 mg/dL) 0.4 AST (17 - 59 U/L) 16 L ALT (21 - 72 U/L) 24 Alkaline Phosphatase (< 127 U/L) 47 Total Protein (6.3 - 8.2 g/dL) 6.4 Albumin (3.5 - 5.0 g/dL) 3.9 Amylase (30 - 110 U/L) 85 Lipase (23 - 300 U/L) 137 Hematology CBC w Diff NO MAN DIFF REQ WBC (4.8 - 10.8 /CUMM) 12.0 H RBC (4.70 - 6.10 /CUMM) 5.29 Hgb (14.0 - 18.0 G/DL) 15.5 Hct (42 - 52 %) 46.9 MCV (80.0 - 94.0 FL) 88.7 MCH (27.0 - 31.0 PG) 29.4 MCHC (33.0 - 37.0 G/DL) 33.1 RDW (11.5 - 14.5 %) 13.9 Plt Count (130 - 400 /CUMM) 264 MPV (7.4 - 10.4 FL) 7.5 Gran % (42.2 - 75.2 %) 68.2 Lymphocytes % (20.5 - 51.1 %) 22.5 Monocytes % (1.7 - 9.3 %) 7.6 Eosinophils % (0 - 5 %) 1.2 Basophils % (0.0 - 2.0 %) 0.5 Absolute Granulocytes (1.4 - 6.5 /CUMM) 8.2 H Absolute Lymphocytes (1.2 - 3.4 /CUMM) 2.7 Absolute Monocytes (0.10 - 0.60 /CUMM) 0.9 H Absolute Eosinophils (0.0 - 0.7 /CUMM) 0.1 Absolute Basophils (0.0 - 0.2 /CUMM) 0.1 12/17 12/17 0845 0504 Chemistry Troponin I (<0.11 ng/ml) < 0.01 Urines Urinalysis LIGHT H Urine Color (YEL,AMB,STR) YEL Urine Clarity (CLEAR) HAZY H Urine pH (5.0 - 8.0) 5.5 Ur Specific [place] (1.001 - 1.035) >= 1.030 Urine Protein (NEG,<30 MG/DL) 100 H Urine Ketones (NEG) NEG Urine Nitrite (NEG) NEG Urine Bilirubin (NEG) NEG Urine Urobilinogen (0.1 - 1.0 EU/dl) 0.2 Ur Leukocyte Esterase (NEG) NEG Ur Microscopic SEDIMENT EXAMINED Urine RBC (0 - 5 /HPF) 5-10 H Urine WBC (0 - 2 /HPF) 3-5 H Ur Epithelial Cells (NONE,FEW) RARE Urine Bacteria (NEG/NONE) RARE H Urine Mucus (FEW,NONE) FEW Urine Hemoglobin (NEG) TRACE-INTACT H Urine Glucose (N MG/DL) NEG 12/17 0438 Chemistry Sodium (137 - 145 mmol/L) 139 Potassium (3.5 - 5.1 mmol/L) 4.6 Chloride (98 - 107 mmol/L) 102 Carbon Dioxide (22 - 30 mmol/L) 21 L Anion Gap (5 - 16) 16 BUN (9 - 20 mg/dL) 18 Creatinine (0.7 - 1.2 mg/dL) 1.5 H Estimated GFR (>60 ml/min) 47 L BUN/Creatinine Ratio (7 - 25 %) 12.0 Glucose (65 - 99 mg/dL) 177 H Lactic Acid (0.7 - 2.1 mmol/L) 2.4 H Calcium (8.4 - 10.2 mg/dL) 9.8 Total Bilirubin (0.2 - 1.3 mg/dL) 0.5 AST (17 - 59 U/L) 19 ALT (21 - 72 U/L) 35 Alkaline Phosphatase (< 127 U/L) 62 Troponin I (<0.11 ng/ml) < 0.01 Total Protein (6.3 - 8.2 g/dL) 7.1 Albumin (3.5 - 5.0 g/dL) 4.5 Globulin (1.9 - 4.2 gm/dL) 2.6 Albumin/Globulin Ratio (1.1 - 2.2 %) 1.7 Lipase (23 - 300 U/L) 99 Hematology CBC w Diff MAN DIFF ORDERED WBC (4.8 - 10.8 /CUMM) 16.0 H RBC (4.70 - 6.10 /CUMM) 5.37 Hgb (14.0 - 18.0 G/DL) 15.7 Hct (42 - 52 %) 47.7 MCV (80.0 - 94.0 FL) 88.9 MCH (27.0 - 31.0 PG) 29.2 MCHC (33.0 - 37.0 G/DL) 32.9 L RDW (11.5 - 14.5 %) 13.9 Plt Count (130 - 400 /CUMM) 285 MPV (7.4 - 10.4 FL) 8.3 Gran % (42.2 - 75.2 %) 89.9 H Lymphocytes % (20.5 - 51.1 %) 6.6 L Monocytes % (1.7 - 9.3 %) 3.2 Eosinophils % (0 - 5 %) 0.1 Basophils % (0.0 - 2.0 %) 0.2 Absolute Granulocytes (1.4 - 6.5 /CUMM) 14.4 H Segmented Neutrophils (42.2 - 75.2 %) 79 H Band Neutrophils (0.0 - 5.0 %) 9 H Absolute Lymphocytes (1.2 - 3.4 /CUMM) 1.1 L Lymphocytes (20.5 - 51.1 %) 5 L Monocytes (1.7 - 9.3 %) 5 Absolute Monocytes (0.10 - 0.60 /CUMM) 0.5 Eosinophils (0 - 5.0 %) 1 Absolute Eosinophils (0.0 - 0.7 /CUMM) 0 Basophils (0.0 - 2.0 %) 1 Absolute Basophils (0.0 - 0.2 /CUMM) 0 Platelet Estimate (ADEQUATE) ADEQUATE Normocytic RBCs VERIFIED Normochromic RBCs VERIFIED Assessment/Plan Assessment/Plan Impression is patient came in dehydrated with abdominal pain he's improved with no clear source but there is no signs of bleeding obstruction infection or ischemia so to him to avoid dehydration and straining he can be discharged and will follow him as needed as an outpatient. Problem List: 1. Upper abdominal pain, unspecified 2. Dehydration 3. History of alcohol use Core Measures Venous Thromboembolism VTE Risk Factors Age>40 No Mechanical VTE Prophylaxis d/t N/A MechProphylax Ordered No VTE Pharm Prophylaxis d/t NA PharmProphylax ordered
[2017-12-18 14:00] VITALS: BP 146/86
== END 2017-12-18 14:48 ==
LOC: ERH 03:55 → ERHI 09:29 → 2NB 09:29 → ENRESERV 12:10 → ENTRNSPT 13:01 → EDTRNSPTSTS 13:03 → 2NB 13:15 → CMPTRNSPT 13:27 → ENPENDDIS 12-18 12:43 → 2NB 12-18 14:48
PROVIDERS: Emergency Medicine; Physician Assistant; Physician Assistant Surgical
DX: R10.10 Upper abdominal pain, unspecified (principal); E86.0 Dehydration; I10 Essential (primary) hypertension; E78.5 Hyperlipidemia, unspecified; Z72.89 Other problems related to lifestyle
CPT/HCPCS: 36592; 74176; 81001; 82436; 93005; 93010; 96361; 96372; 96374; 96375; 96376; G0378; J0131; J1644; J1885; J2405; J3490; J7042